=== PATIENT | female | born 1960 | race Two or more races ===

== ENCOUNTER 2023-11-12 17:08 | Observation (INO) | payer OTHER ==
[2023-11-12 17:21] VITALS: RESP 18; BMI 27.9
[2023-11-12 19:20] LABS: BASO % 0.4 % (0-2.0); EOS % 0.2 % (0-4.5); HEMATOCRIT 43.1 % (32.4-45.2); HEMOGLOBIN 14.2 GM/dL (10.7-15.3); LYMPH % 10.2 % (8-40); MCH 28.3 pg (25.7-33.7); MCHC 32.9 g/dl (32.0-36.0); MEAN PLT VOLUME 9.4 fl (7.5-11.1); MONO % 4.8 % (3.8-10.2); NEUT % 84.4 % (42.8-82.8); PLATELET COUNT 321 10^3/uL (134-434); RBC 5.01 M/mm3 (3.60-5.2); RDW 14.5 % (11.6-15.6); WHITE BLOOD COUNT 9.4 K/mm3 (4.0-10.0)
[2023-11-12 19:24] LABS: URINE APPEARANCE CLEAR; URINE BILIRUBIN NEGATIVE (NEGATIVE); URINE COLOR YELLOW; URINE GLUCOSE (UA) NEGATIVE (NEGATIVE); URINE KETONE NEGATIVE (NEGATIVE); URINE LEUK ESTERASE NEGATIVE (NEGATIVE); URINE NITRITE NEGATIVE (NEGATIVE); URINE PROTEIN NEGATIVE (NEGATIVE)
[2023-11-12 19:39] LABS: POTASSIUM 4.4 mmol/L (3.5-5.1)
[2023-11-12 19:41] LABS: CALCIUM 10.9 mg/dL (8.5-10.1)
[2023-11-12 19:42] LABS: ALBUMIN 3.6 g/dl (3.4-5.0); BLOOD UREA NITROGEN 23.4 mg/dL (7-18)
[2023-11-12 19:45] LABS: CREATININE 0.7 mg/dL (0.55-1.3)
[2023-11-12 19:46] LABS: BILIRUBIN,TOTAL 0.3 mg/dL (0.2-1); TOT PROT 8.4 g/dl (6.4-8.2)
[2023-11-12] MEDS ORDERED: SODIUM CHLORIDE 1,000 ML IV STA (23:51)
[2023-11-13 01:01] VITALS: BP 135/67; PULSE 99; TEMP 98.6
== END 2023-11-13 01:15 | disposition home or self-care (01) ==
LOC: JER 17:08 → JERBED 22:05
PROVIDERS: ADMIT Internal Medicine; ATTEND Internal Medicine
DX: R42 Dizziness and giddiness (principal); J45.909 Unspecified asthma, uncomplicated; E78.5 Hyperlipidemia, unspecified; I10 Essential (primary) hypertension; R00.0 Tachycardia, unspecified; E11.9 Type 2 diabetes mellitus without complications
CPT/HCPCS: 36415; 71046-TC-FY; 80053; 81003; 84439; 84443; 84484; 85025; 87086; 93005; 93010; 99285-25; G0378